=== PATIENT | female | born 1995 | race Caucasian/White ===

== ENCOUNTER 2022-08-19 12:57 | Emergency (ER) | payer OTHER, SELFPAY ==
--- NOTE | 2022-08-19 12:58 | ED.URI ---
HPI - URI/Sore Throat General Chief Complaint: Upper Respiratory Infection Stated Complaint: sore throat congestion fever Time Seen by Provider: 08/19/22 12:58 Source: patient and RN notes reviewed History of Present Illness HPI Narrative: Patient is a 21-year-old female who presents to the Urgent Care with complaints of sore throat, congestion, fever and body aches since Thursday. Patient states that she has been using Mucinex and Tylenol. Denies of any nausea or vomiting or headache. Denies any ill exposures. Patient states her main concern is wondering if she has strep throat. No other acute complaints. No acute distress noted. Patient aware of the plan of care. Some parts of this dictation were generated by voice recognition software and may contain typographical and/or grammatical inaccuracies. Related Data Home Medications Medication Instructions Recorded Confirmed No Home Medications 08/19/22 08/19/22 Allergies Allergy/AdvReac Type Severity Reaction Status Date / Time No Known Allergies Allergy Verified 08/19/22 13:09 Review of Systems Review of Systems: CONSTITUTIONAL: reports of fever EYES: Denies visual changes, redness, or discharge. ENT: Reports sinus congestion, rhinorrhea, sore throat CARDIOVASCULAR: Denies chest pain, palpitations, or edema. RESPIRATORY: Denies cough or dyspnea. GASTROINTESTINAL: Denies abdominal pain, nausea, vomiting, or diarrhea. GENITOURINARY: Denies dysuria or hematuria. SKIN: Denies rash or itching. MUSCULOSKELETAL: Denies back pain, joint pain. reports of body aches NEUROLOGIC: Denies headache, numbness, or weakness. All other systems reviewed are negative, except as documented in HPI. PMFSH Comments At the time of my signature, I reviewed and agree with the nursing past medical, surgical, social, and family history. There is no relevant family history pertinent to the patient complaint. Exam Narrative: GENERAL: This is a well-nourished, well-developed patient. appears fatigued HEAD: normocephalic, atraumatic. EYES: PERRL. Sclera clear/white. Vision is grossly intact. bilateral clear drainage EARS: External ears normal, auditory canals clear and without drainage, TMs normal without perforation. Hearing grossly intact. NOSE: External nose normal with no obvious nasal discharge, nares without redness, clear rhinorrhea. THROAT: Mucous membranes moist, mild erythema to posterior oropharynx with moderate postnasal drainage NECK: Neck supple, non-tender without lymphadenopathy CARDIOVASCULAR: Regular rate and rhythm without murmurs, gallops, or rubs. RESPIRATORY: Clear to auscultation. Breath sounds equal bilaterally. No wheezes, rales, or rhonchi. SKIN: warm, intact with no suspicious lesions or rash, good texture and turgor. NEURO: awake, alert, and oriented to person, place and time. There were no obvious focal neurologic abnormalities. EXTREMITIES: No clubbing, cyanosis, or edema. Course Course Level of Care: Express Care Visit Vital Signs Vital signs: Vital Signs Temperature 98.5 F 08/19/22 13:06 Pulse Rate 101 H 08/19/22 13:06 Respiratory Rate 16 08/19/22 13:06 Blood Pressure 113/72 08/19/22 13:06 Pulse Oximetry 96 08/19/22 13:06 Oxygen Delivery Room Air 08/19/22 13:06 Temperature 98.5 F 08/19/22 13:06 Pulse Rate 101 H 08/19/22 13:06 Respiratory Rate 16 08/19/22 13:06 Blood Pressure 113/72 08/19/22 13:06 Pulse Oximetry 96 08/19/22 13:06 Oxygen Delivery Room Air 08/19/22 13:06 reviewed MDM - URI/Sore Throat MDM Narrative Medical decision making narrative: reviewed lab results with the patient. She is aware that strep swab was negative. We will culture the swab and call if medication is necessary, based on culture results. Culture takes approximately 2-3 days. It is highly likely that you have influenza. Supportive care with treatment [id number] as necessary such as daily antihistamine, Clarit
[2022-08-19 13:06] VITALS: BP 113/72; PULSE 101; RESP 16; TEMP 36.9; O2SAT 96
== END 2022-08-19 13:39 | disposition home or self-care (01) ==
PROVIDERS: Emergency Provider Nurse Practitioner Family
DX: J02.9 Acute pharyngitis, unspecified (principal); R50.9 Fever, unspecified; R09.81 Nasal congestion
CPT/HCPCS: 87081; 87880; 99213; G0463